=== PATIENT | female | born 1980 | race Caucasian/White ===

== ENCOUNTER 2018-02-24 16:11 | Emergency (ER) | payer OTHER, BC ==
[2018-02-24] MEDS ORDERED: Albuterol 0.083% 2.5 MG/3 ML Neb Soln NEB ONE (16:12)
[2018-02-24] MEDS ORDERED: LORazepam 2 MG/ML SDV IVPUSH ONE (16:51)
--- NOTE | 2018-02-24 16:51 | EDM.PDOC ---
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 This is been formulated into a mustache. She was placing it on her lower lip when a piece broke off and she started laughing. Subsequently she feels like persistent irritation in her hypopharynx with trouble breathing. He has tried several pop to try and wash it down but cannot. She feels like it is still sitting in her bottom of her throat causing a choking sensation. She has been nearly vomiting or dry heaving repetitively upon trying to swallow. 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) (None.) - Related Data Allergies Allergy/AdvReac Type Severity Reaction Status Date / Time No Known Allergies Allergy Verified 02/24/18 16:34 Past Medical History Psychiatric History: Reports: ADHD, Anxiety, Depression - Past Surgical History HEENT Surgical History: Reports: Adenoidectomy, Oral Surgery, Tonsillectomy Female Surgical History: Reports: Tubal Ligation Other Female Surgeries/Procedures: Uterine ablation Other Neurological Surgeries/Procedures: "head surgery" Social & Family History - Family History Family Medical History: Noncontributory - Tobacco Use Smoking Status *Q: Never Smoker - Recreational Drug Use Recreational Drug Use: No - Living Situation & Occupation Living situation: Reports: Occupation: Employed ED ROS GENERAL - Review of Systems Review Of Systems: See Below Constitutional: Reports: No Symptoms HEENT: Reports: No Symptoms Respiratory: Reports: Shortness of Breath, Wheezing Cardiovascular: Reports: No Symptoms Endocrine: Reports: No Symptoms GI/Abdominal: Reports: No Symptoms : Reports: No Symptoms Musculoskeletal: Reports: No Symptoms Skin: Reports: No Symptoms Neurological: Reports: No Symptoms Psychiatric: Reports: No Symptoms Hematologic/Lymphatic: Reports: No Symptoms Immunologic: Reports: No Symptoms ED EXAM, GENERAL - Physical Exam Exam: See Below Exam Limited By: No Limitations General Appearance: Alert, WD/WN Course - Vital Signs Last Recorded V/S: Last Vital Signs Temp 36.2 C 02/24/18 16:29 Pulse 93 02/24/18 16:29 Resp 18 02/24/18 16:29 BP 155/96 H 02/24/18 16:29 Pulse Ox 99 02/24/18 17:36 - Orders/Labs/Meds Orders: Active Orders 24 hr Category Date Time Status RT Aerosol Therapy [RC] ASDIRECTED Care 02/24/18 17:33 Active Meds: Medications Discontinued Medications Generic Name Dose Route Start Last Admin Trade Name Freq PRN Reason Stop Dose Admin Albuterol 2.5 mg 02/24/18 16:12 02/24/18 16:12 Proventil Neb Soln NEB 02/24/18 16:13 2.5 mg ONETIME ONE Administration Benzocaine 10 gm 02/24/18 16:54 Hurricaine 20% Gel MUCMEM 02/24/18 16:55 ONETIME ONE Benzocaine 10 ml 02/24/18 17:04 02/24/18 17:14 Hurricaine 20% Manor MUCMEM 02/24/18 17:05 10 ml ONETIME ONE Administration Lidocaine 4 ml 02/24/18 16:52 Lta 360 Kit Top Soln TOP 02/24/18 16:53 ONETIME ONE Lidocaine HCl 15 ml 02/24/18 17:10 02/24/18 17:14 Xylocaine 2% Viscous PO 02/24/18 17:11 15 ml ONETIME ONE Administration Lidocaine HCl 50 ml 02/24/18 17:17 02/24/18 17:19 Xylocaine 1% INJECT 02/24/18 17:18 50 ml ONETIME ONE Administration Lorazepam 1 mg 02/24/18 16:51 02/24/18 16:55 Ativan IVPUSH 02/24/18 16:52 1 mg ONETIME ONE Administration Midazolam HCl 2 mg 02/24/18 16:56 02/24/18 18:05 Versed 1 Mg/Ml IVPUSH 02/24/18 16:57 1 mg ONETIME ONE Administration Propofol Confirm 02/24/18 17:42 Diprivan 20 Ml Administered 02/24/18 17:43 Dose 200 mg .ROUTE .STK-MED ONE - Radiology Interpretation Free Text/Narrative:: 37-year-old female presents to the ED due to inhalation of a foreign body which is like fake fur. This is found in a mustache type of material with an adhesive. She had it on and was laughing and inhaled the corner of the mustache and her upper airway which caused her to have severe paroxysmal coughing for a period of time and then dry heaving and retching. Still feels like the form body is in her hypopharynx. Attempts to relieve the feeling by in taking soda pop and bread dipped in milk failed to relieve the symptoms although she did feel improved with less feeling of dry heaving or retching. Still feels a foreign body sensation in the center of her anterior throat in the hypopharynx. Plan will be to proceed with the aid of UNIVERSITY ADMINISTRATOR to provide Hurricaine spray and local anesthetic to her airway and posterior oropharynx to see if we can have a look at the epiglottis and hypopharynx for the foreign body without need for intubation. - Re-Assessments/Exams Free Text/Narrative Re-Assessment/Exam: 02/24/18 18:04 after Hurricaine spray and inhalational lidocaine procedure done while she was awake. She tolerated the procedure very well with the occasional gag reflex. There was no blood in the oropharynx. With a laryngoscope #4 Mac blade I was able to explore anterior to the as well as posterior to the epiglottis in the hypopharynx. I suctioned this area as well and no foreign material was identified. I therefore think that she probably swallowed this piece of fake fur. There is still a chance that she aspirated it and will develop signs and symptoms of upper respiratory tract infection in the next 72 hours if this did occur. Her cough reflex was very aggressive and I strongly doubt that she aspirated it. There is no sign of stridor and upper airway or upper bronchi on repeat exam. Dilaudid for the lidocaine to wear off before seeing how she is feeling and if she has any further foreign body sensation. 02/24/18 19:02 patient is now able swallow. Her voice is clear. She is alert and oriented. She does not have the foreign body sensation in her throat at this time. Patient will be discharged to home. Follow-up if she develops any signs of upper respiratory tract infection or bronchitis with cough or sputum production fever or chills in the next 96 hours. Departure - Departure Time of Disposition: 19:02 Disposition: Home, Self-Care 01 Condition: Fair (Oropharyngeal foreign body) Clinical Impression: Choking due to foreign body - Discharge Information *PRESCRIPTION DRUG MONITORING PROGRAM REVIEWED*: Not Applicable *COPY OF PRESCRIPTION DRUG MONITORING REPORT IN PATIENT GAETANO: Not Applicable Referrals: Edouard Chin MD [Primary Care Provider] - Forms: ED Department Discharge Additional Instructions: Evaluation in the emergency room today in regards to aspiration of a piece of fake fur that was in the shape of a mustache. His cause you to have the upper airway obstruction symptoms as well as gagging reflex producing vomiting and dry heaves. It appears that the foreign body went down deep into the hypopharynx and precipitated above symptoms. Symptoms seemed to gradually improve. We managed to explore your hypopharynx and airway under hurricane spray and lidocaine inhalational treatment to no meter throat. Explore aeration I could not identify any foreign body anterior to the esophagus or posterior to the esophagus or near the vocal cords. No sign of foreign body in the posterior oropharynx identified either. All of these areas also were suctioned aggressively with Yonker. Therefore it appears of the foreign body either was aspirated anterior lung but I could not identify this on clinical examination or you swallowed it. At this point time he may eat and drink normally. You are to monitor for development of upper spine Kevin tract symptoms such as increasing cough or purulent mucus production over the next 72-96 hours. If this occurs of course you need to return to the ED for further evaluation and potential bronchoscopy. - My Orders Last 24 Hours: My Active Orders 02/24/18 17:33 RT Aerosol Therapy [RC] ASDIRECTED - Assessment/Plan Last 24 Hours: My Active Orders 02/24/18 17:33 RT Aerosol Therapy [RC] ASDIRECTED
[2018-02-24] MEDS ORDERED: Lidocaine 4% Top Soln LTA 4 ML SYRINGE TOP ONE (16:52)
[2018-02-24] MEDS ORDERED: Benzocaine 20% Dental Gel 30 GM Jar MUCMEM ONE (16:54)
[2018-02-24] MEDS ORDERED: Midazolam 1 MG/ML 2 ML SDV IVPUSH ONE (16:56)
[2018-02-24] MEDS ORDERED: Benzocaine 20% Oral Spray 59.2 ML Canister MUCMEM ONE (17:04)
[2018-02-24] MEDS ORDERED: Lidocaine 2% Viscous Solution 15 ML Cup PO ONE (17:10)
[2018-02-24] MEDS ORDERED: Lidocaine 1% 50 ML MDV INJECT ONE (17:17)
[2018-02-24] MEDS ORDERED: Propofol 200 MG/20 ML SDV ONE (17:42)
--- NOTE | 2018-02-24 18:12 | PCM.SN ---
- Free Text/Narrative Note: Stand by assist for Dr. Keith for a questionable foreign body removal from the upper hypopharynx. Wendy had been drinking soda along with trying some milk and bread to dislodge the piece of cotton. Discussed the risk of aspiration with a full stomach with Wendy and her . Dr. Keith is in agreement to proceed with a lidocaine nebulizer treatment and viscus lidocaine gargle. The lidocaine available was 1%. 5 ml was nebulized over 20 minutes. Wendy tolerated the airway exam well. No further anesthesia was needed. Romeo Sherwood CRNA
== END 2018-02-24 19:22 | disposition home or self-care (01) ==
LOC: JD.ED 16:11
DX: T17.298A Other foreign object in pharynx causing other injury, initial encounter (principal); F41.9 Anxiety disorder, unspecified; F32.9 Major depressive disorder, single episode, unspecified
CPT/HCPCS: 94640; 96374; 96375; 99284; A9270; J2060; J2250; J2704

== ENCOUNTER 2018-07-24 16:44 | Emergency (ER) | payer BC, OTHER ==
[2018-07-24] MEDS ORDERED: Ondansetron 4 MG Tab.DIS PO ONE (17:30)
[2018-07-24] MEDS ORDERED: Ondansetron 4 MG Tab.DIS ONE (17:31)
--- NOTE | 2018-07-24 17:49 | EDM.PDOC ---
ED HPI GENERAL MEDICAL PROBLEM - General Chief Complaint: Respiratory Problem Stated Complaint: FEVER AND BODY ACHES AND NAUSEA Time Seen by Provider: 07/24/18 17:16 Source of Information: Reports: Patient, RN Notes Reviewed - History of Present Illness INITIAL COMMENTS - FREE TEXT/NARRATIVE: 37 year old female with onset of nausea, fever, chills, myalgias this past morning. She is nauseated, has not vomited. No cough, monae. or sore throat. 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 Generalized Pain Score (Numeric/FACES): 6 - Related Data Allergies Allergy/AdvReac Type Severity Reaction Status Date / Time No Known Allergies Allergy Verified 02/24/18 16:34 Home Meds: Home Meds Cholecalciferol (Vitamin D3) [Vitamin D3] 1,000 unit PO DAILY 07/24/18 [History] Escitalopram [Lexapro] 20 mg PO DAILY 07/24/18 [History] Methylphenidate HCl [Ritalin] 40 mg PO DAILY 07/24/18 [History] Ondansetron [Zofran ODT] 4 mg PO Q6H PRN #10 tab.dis 07/24/18 [Rx] Past Medical History Psychiatric History: Reports: ADHD, Anxiety, Depression - Past Surgical History HEENT Surgical History: Reports: Adenoidectomy, Oral Surgery, Tonsillectomy Female Surgical History: Reports: Tubal Ligation Other Female Surgeries/Procedures: Uterine ablation Other Neurological Surgeries/Procedures: "head surgery" Social & Family History - Family History Family Medical History: Noncontributory - Tobacco Use Smoking Status *Q: Never Smoker - Caffeine Use Caffeine Use: Reports: Coffee, Soda - Recreational Drug Use Recreational Drug Use: No - Living Situation & Occupation Living situation: Reports: Occupation: Employed ED ROS GENERAL - Review of Systems Review Of Systems: See Below Constitutional: Reports: Chills HEENT: Denies: Rhinitis, Sinus Problem, Throat Pain Respiratory: Denies: Shortness of Breath, Cough Cardiovascular: Denies: Chest Pain Endocrine: Reports: Fatigue GI/Abdominal: Reports: Nausea. Denies: Diarrhea, Vomiting Musculoskeletal: Reports: Other (generalized achiness) Skin: Denies: Rash Neurological: Reports: Headache ED EXAM, GENERAL - Physical Exam Exam: See Below General Appearance: Alert, Mild Distress Eye Exam: Bilateral Eye: PERRL Nose: Normal Inspection Throat/Mouth: Normal Inspection Head: Atraumatic Neck: Supple Respiratory/Chest: No Respiratory Distress, Lungs Clear, Normal Breath Sounds Cardiovascular: Tachycardia Extremities: Normal Inspection, Normal Range of Motion Neurological: Alert, Oriented, No Motor/Sensory Deficits Skin Exam: Warm, Dry, Normal Color Course - Vital Signs Last Recorded V/S: Last Vital Signs Temp 99.1 F 07/24/18 18:03 Pulse 106 H 07/24/18 18:03 Resp 15 07/24/18 18:03 BP 126/68 07/24/18 18:03 Pulse Ox 95 07/24/18 18:03 - Orders/Labs/Meds Meds: Medications Discontinued Medications Generic Name Dose Route Start Last Admin Trade Name Freq PRN Reason Stop Dose Admin Ondansetron HCl 4 mg 07/24/18 17:30 07/24/18 17:33 Zofran Odt PO 07/24/18 17:31 4 mg ONETIME ONE Administration Ondansetron HCl Confirm 07/24/18 17:31 07/24/18 17:59 Zofran Odt Administered 07/24/18 17:32 Not Given Dose 4 mg .ROUTE .STK-MED ONE - Re-Assessments/Exams Free Text/Narrative Re-Assessment/Exam: 07/25/18 14:55 Infl. screen did come back neg. Discharge instr. as documented. Departure - Departure Time of Disposition: 17:47 Disposition: Home, Self-Care 01 Clinical Impression: Viral syndrome - Discharge Information Prescriptions: Ondansetron [Zofran ODT] 4 mg PO Q6H PRN #10 tab.dis PRN Reason: Nausea/Vomiting Referrals: Edouard Chin MD [Primary Care Provider] - Forms: ED Department Discharge, ED Return to Work/School Form Additional Instructions: Rest, clear liquids tonight and until tomorrow afternoon or until symptoms of severe nausea, diarrhea resolving, Zofran every 6-8 hours if needed for further nausea or vomiting, probiotic also recommended to take twice daily for the next week and thereafter as needed, off work as suggested until symptoms resolving or at least getting back toward normal, you need to be without fever for at least 24 hours he for returning back to work. Follow-up clinic as needed, return to ED as needed if symptoms worsening in any way.
== END 2018-07-24 18:08 | disposition home or self-care (01) ==
LOC: JD.ED 16:44
DX: B34.9 Viral infection, unspecified (principal); F41.9 Anxiety disorder, unspecified; F32.9 Major depressive disorder, single episode, unspecified; Z98.890 Other specified postprocedural states; Z98.51 Tubal ligation status
CPT/HCPCS: 87804; 99283; A9270

== ENCOUNTER 2020-05-20 05:23 | Emergency (ER) | payer BC ==
--- NOTE | 2020-05-20 05:51 | EDM.PDOC ---
<Dorian Bazan - Last Filed: 05/20/20 06:41> ED HPI GENERAL MEDICAL PROBLEM - General Chief Complaint: Respiratory Problem Stated Complaint: COVID+, SOB Time Seen by Provider: 05/20/20 06:20 Source of Information: Reports: Patient History Limitations: Reports: No Limitations - History of Present Illness INITIAL COMMENTS - FREE TEXT/NARRATIVE: This is a 39-year-old female she had onset of Covid type symptoms on the was tested on the and found to be positive. She has had the typical Covid symptoms of diarrhea, congestion, fatigue, headache and over the last couple of days she has been having increasing shortness of breath with her cough. She says as long as she is still she is not short of breath but as soon as she tries to get up and do anything she gets more short of breath. She does not suggest there is any significant wheezing with this shortness of breath but she does have some tightness or heaviness in her chest. Due to the shortness of breath she comes to the ER for evaluation. She has been drinking fluids. 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: Psychiatric History: Reports: ADHD, Anxiety, Depression - Infectious Disease History Infectious Disease History: Reports: Novel Coronavirus - Past Surgical History HEENT Surgical History: Reports: Adenoidectomy, Oral Surgery, Tonsillectomy Female Surgical History: Reports: Tubal Ligation Other Female Surgeries/Procedures: Uterine ablation Other Neurological Surgeries/Procedures: "head surgery" Social & Family History - Family History Family Medical History: No Pertinent Family History - Tobacco Use Tobacco Use Status *Q: Never Tobacco User - Caffeine Use Caffeine Use: Reports: Coffee, Soda - Living Situation & Occupation Living situation: Reports: Occupation: Employed ED ROS GENERAL - Review of Systems Review Of Systems: See Below Constitutional: Reports: Fatigue. Denies: Fever, Chills HEENT: Reports: Sinus Problem Respiratory: Reports: Shortness of Breath, Cough Cardiovascular: Reports: No Symptoms GI/Abdominal: Reports: Diarrhea. Denies: Nausea, Vomiting : Reports: No Symptoms Musculoskeletal: Reports: No Symptoms Skin: Reports: No Symptoms Neurological: Reports: No Symptoms Psychiatric: Reports: No Symptoms Hematologic/Lymphatic: Reports: No Symptoms ED EXAM, GENERAL - Physical Exam Exam: See Below Exam Limited By: No Limitations General Appearance: Alert, WD/WN, No Apparent Distress Eye Exam: Bilateral Eye: Normal Inspection Ears: Normal External Exam Throat/Mouth: Normal Voice, No Airway Compromise Head: Normocephalic Neck: Supple Respiratory/Chest: No Respiratory Distress, Lungs Clear, Normal Breath Sounds, Other (Occasional crackle in the base noted) Cardiovascular: Regular Rate, Rhythm, No Murmur GI/Abdominal: Other (Denies any significant tenderness) Back Exam: Normal Inspection, Full Range of Motion Extremities: Normal Inspection, Normal Range of Motion Neurological: Alert, Oriented Psychiatric: Normal Affect, Normal Mood Skin Exam: Warm, Dry Course - Re-Assessments/Exams Free Text/Narrative Re-Assessment/Exam: 05/20/20 06:41 When the patient is seated her pulse ox runs about [id number]. When she starts talking it actually goes a little higher. But if she gets up it seems to desat especially at home down to 88 to 90%. Departure - Departure Disposition: Home, Self-Care 01 Clinical Impression: COVID-19 - Discharge Information Prescriptions: dexAMETHasone [Dexamethasone] 6 mg PO DAILY #15 tab Referrals: PCP,Unknown [Ordering Only Provider] - Sylvia Post NP [Primary Care Provider] - 1 Week Forms: ED Department Discharge Additional Instructions: Take the dexamethasone 6mg or 1.5 pills daily for 10 days. Drink plenty of f luids. Use the inhaler 2 puffs every 6 hours as needed for shortness of breath. Use tylenol or motrin as needed for any fever or pain. Keep monitoring your oxygen saturations. If they are consistently below 90 please return. Sepsis Event Note (ED) - Evaluation Sepsis Screening Result: No Definite Risk <Dorian Jacques - Last Filed: 05/20/20 08:18> Course - Vital Signs Last Recorded V/S: Last Vital Signs Temp 99 F 05/20/20 07:03 Pulse 111 H 05/20/20 07:03 Resp 20 05/20/20 07:03 BP 120/87 05/20/20 07:03 Pulse Ox 95 05/20/20 05:27 - Orders/Labs/Meds Orders: Active Orders 24 hr Category Date Time Status RT Post Treatment Assessment [RC] Click to Edit Care 05/20/20 08:12 Ordered RT Pre-Treatment Assessment [RC] Click to Edit Care 05/20/20 08:12 Ordered CXR [Chest 1V Frontal] [CR] Stat Exams 05/20/20 06:39 Taken Albuterol [Proventil HFA] Med 05/20/20 08:11 Once See Dose Instructions INH ONETIME ONE dexAMETHasone Med 05/20/20 08:11 Once 4 mg PO ONETIME ONE Labs: Laboratory Tests 05/20/20 05/20/20 05/20/20 Range/Units 06:55 06:55 06:55 WBC 2.33 L* (3.98-10.04) K/mm3 RBC 5.05 (3.98-5.22) M/mm3 Hgb 15.0 (11.2-15.7) gm/dl Hct 43.3 (34.1-44.9) % MCV 85.7 (79.4-94.8) fl MCH 29.7 (25.6-32.2) pg MCHC 34.6 (32.2-35.5) g/dl RDW Std Deviation 38.9 (36.4-46.3) fL Plt Count 132 L (182-369) K/mm3 MPV 9.7 (9.4-12.3) fl Neut % (Auto) 60.6 (34.0-71.1) % Lymph % (Auto) 30.0 (19.3-51.7) % [place] % (Auto) 7.7 (4.7-12.5) % Eos % (Auto) 0.9 (0.7-5.8) Baso % (Auto) 0.4 (0.1-1.2) % Neut # (Auto) 1.41 L (1.56-6.13) K/mm3 Lymph # (Auto) 0.70 L (1.18-3.74) K/mm3 [place] # (Auto) 0.18 L (0.24-0.36) K/mm3 Eos # (Auto) 0.02 L (0.04-0.36) K/mm3 Baso # (Auto) 0.01 (0.01-0.08) K/mm3 Manual Slide Review Abnormal smear Sodium 140 (136-145) mEq/L Potassium 3.7 (3.5-5.1) mEq/L Chloride 104 (98-107) mEq/L Carbon Dioxide 24 (21-32) mEq/L Anion Gap 15.7 H (5-15) BUN 12 (7-18) mg/dL Creatinine 0.6 (0.55-1.02) mg/dL Est Cr Clr Drug Dosing TNP Estimated GFR (MDRD) > 60 (>60) mL/min BUN/Creatinine Ratio 20.0 H (14-18) Glucose 114 H (74-106) mg/dL Calcium 9.4 (8.5-10.1) mg/dL Ferritin 106 (8-252) ng/ml Total Bilirubin 0.5 (0.2-1.0) mg/dL AST 37 (15-37) U/L ALT 55 (14-59) U/L Alkaline Phosphatase 63 (46-116) U/L Lactate Dehydrogenase 212 (81-234) U/L Troponin I < 0.017 (0.00-0.056) ng/mL C-Reactive Protein 2.4 H* (<1.0) mg/dL Total Protein 7.0 (6.4-8.2) g/dl Albumin 3.6 (3.4-5.0) g/dl Globulin 3.4 gm/dL Albumin/Globulin Ratio 1.1 (1-2) - Re-Assessments/Exams Free Text/Narrative Re-Assessment/Exam: 05/20/20 08:[address] Bazan. The patient's oxygen saturations only got as low at 93%. Her CXR looks good. Her WBC was low at 2.33. I do not have any prior labs to compare to. Her anion gap was slightly elevated at 15.7. Her troponin is negative. Her CRP is elevated at 2.4. 05/20/20 08:15 I will give her an inhaler and some dexamethasone. Departure - Departure Time of Disposition: 08:20 Condition: Good - Discharge Information *PRESCRIPTION DRUG MONITORING PROGRAM REVIEWED*: Not Applicable *COPY OF PRESCRIPTION DRUG MONITORING REPORT IN PATIENT GAETANO: Not Applicable Sepsis Event Note (ED) - Focused Exam Vital Signs: Vital Signs Temp Pulse Resp BP Pulse Ox 05/20/20 07:03 99 F 111 H 20 120/87 05/20/20 05:27 97.2 F 128 H 22 H 138/90 95 - My Orders Last 24 Hours: My Active Orders 05/20/20 08:11 Albuterol [Proventil HFA] See Dose Instructions INH ONETIME ONE dexAMETHasone 4 mg PO ONETIME ONE 05/20/20 08:12 RT Post Treatment Assessment [RC] Click to Edit RT Pre-Treatment Assessment [RC] Click to Edit - Assessment/Plan Last 24 Hours: My Active Orders 05/20/20 08:11 Albuterol [Proventil HFA] See Dose Instructions INH ONETIME ONE dexAMETHasone 4 mg PO ONETIME ONE 05/20/20 08:12 RT Post Treatment Assessment [RC] Click to Edit RT Pre-Treatment Assessment [RC] Click to Edit
[2020-05-20] MEDS ORDERED: Albuterol 6.7 GM Inhaler INH ONE (08:11)
[2020-05-20] MEDS ORDERED: Dexamethasone 4 MG Tab PO ONE ×2 (08:11→08:14)
--- NOTE | 2020-05-21 09:52 | CR ---
PROCEDURE INFORMATION: Exam: XR Chest, 1 View Exam date and time: 05/20/2020 6:57 AM Age: 39 years old Clinical indication: Cough and shortness of breath; Patient HX: Covid+ TECHNIQUE: Imaging protocol: XR of the chest Views: 1 view. COMPARISON: No relevant prior studies available. FINDINGS: Lungs: There is minor linear atelectasis or scarring at the left base. The lungs are otherwise clear. Pleural space: Unremarkable. No pleural effusion. No pneumothorax. Heart/Mediastinum: Unremarkable. No cardiomegaly. Bones/joints: Unremarkable. IMPRESSION: No evidence for acute pulmonary disease. Thank you for allowing us to participate in the care of your patient. Dictated and Authenticated by: Isai Maddox MD 05/20/2020 8:38 AM Central Time ([place] & [place]) HUE[place]
== END 2020-05-20 08:38 | disposition home or self-care (01) ==
LOC: JD.ED 05:23
DX: U07.1 COVID-19 (principal); F90.9 Attention-deficit hyperactivity disorder, unspecified type; F41.9 Anxiety disorder, unspecified; F32.9 Major depressive disorder, single episode, unspecified; Z79.899 Other long term (current) drug therapy
CPT/HCPCS: 36415; 71045; 80053; 82728; 83615; 84484; 85025; 86140; 94640; 99285; A9270; J8540

== ENCOUNTER 2020-11-22 02:48 | Emergency (ER) | payer BC ==
--- NOTE | 2020-11-22 03:07 | EDM.PDOC ---
ED HPI GENERAL MEDICAL PROBLEM - General Chief Complaint: Lower Extremity Injury/Pain Stated Complaint: ANKLE INJURY Time Seen by Provider: 11/22/20 02:54 Source of Information: Reports: Patient, Family () History Limitations: Reports: No Limitations - History of Present Illness INITIAL COMMENTS - FREE TEXT/NARRATIVE: Mrs. Bey is a most pleasant 39-year-old woman who now presents to the ED after slipping, falling, and twisting her left ankle around 02:30 this morning. She states that she also struck her forehead when she fell, however, she was not knocked unconscious, and she denies having a headache. She is otherwise uninjured. No prior left ankle injury. Here in the ED, the patient's initial BP is found to be mildly elevated at 146/99, with slight tachycardia of 101 bpm. She is afebrile, saturating 96% on room air. She does not appear to be in acute distress. Prior to this morning, the patient denies having a recent fever, chills, sore throat, ear pain, nasal or sinus congestion, cough, dyspnea, chest pain, palpitations, nausea, vomiting, constipation, diarrhea, abdominal pain, urinary symptoms, recent weight gain or weight loss, recent bloody bowel movements or black bowel movements, recent joint aches, headaches, or rashes. The patient's PCP is Dr. Edouard Núñez, in [place]. Her Systems Programmer Analyst is Dr. Nisha Knox, in [place]. Left Ankle Pain Score (Numeric/FACES): 8 - Related Data Allergies Allergy/AdvReac Type Severity Reaction Status Date / Time No Known Allergies Allergy Verified 11/22/20 02:50 Home Meds: Home Meds Cholecalciferol (Vitamin D3) [Vitamin D3] 1,000 unit PO DAILY 07/24/18 [History] Escitalopram [Lexapro] 20 mg PO DAILY 07/24/18 [History] Methylphenidate HCl [Ritalin] 40 mg PO DAILY 07/24/18 [History] dexAMETHasone [Dexamethasone] 6 mg PO DAILY #15 tab 05/20/20 [Rx] Past Medical History Psychiatric History: Reports: ADHD, Anxiety, Depression - Infectious Disease History Infectious Disease History: Reports: Novel Coronavirus (dx'd 05/12/2020) - Past Surgical History HEENT Surgical History: Reports: Adenoidectomy, Oral Surgery (dental extractions), Tonsillectomy Female Surgical History: Reports: Endometrial Ablation, Tubal Ligation Other Neurological Surgeries/Procedures: "head surgery" Social & Family History - Tobacco Use Tobacco Use Status *Q: Former Tobacco User Years of Tobacco use: 2 Packs/Tins Daily: 0.3 Packs/Tins Daily Comment: Quit 2002 Tobacco Use Comment: Started smoking around 1999 - Caffeine Use Caffeine Use: Reports: Coffee, Soda - Alcohol Use Alcohol Use History: Yes Alcohol Use Frequency: Socially (occasionally to excess) - Recreational Drug Use Recreational Drug Use: No - Living Situation & Occupation Living situation: Reports: , with Spouse, with Family (4 kids) 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 ED EXAM, GENERAL - Physical Exam Exam: See Below Exam Limited By: No Limitations General Appearance: Alert, WD/WN, No Apparent Distress Eye Exam: Bilateral Eye: EOMI, Normal Inspection Ears: Normal External Exam, Hearing Grossly Normal Nose: Normal Inspection Throat/Mouth: Normal Inspection, Normal Lips, Normal Voice, No Airway Compromise Head: Normocephalic, Other (Small abrasion to forehead, just left of midline. No associated swelling.) Neck: Normal Inspection, Full Range of Motion Respiratory/Chest: No Respiratory Distress Peripheral Pulses: 3+: Dorsalis Pedis (L), Dorsalis Pedis (R) Extremities: Other (Considerable swelling, with some ecchymosis over the lateral malleolus, although this area is not particularly tender. Minimal swelling over the medial malleolus, although this area is most tender. Minimal, if any, tenderness over the anterior and posterior syndesmosis. Neurovascular status of th) Neurological: Alert, Oriented, Normal Cognition, No Motor/Sensory Deficits Psychiatric: Normal Affect Skin Exam: Warm, Dry, Intact, Normal Color, No Rash ED TRAUMA EXTREMITY PROCEDURES - Splinting Left Lower Extremity Splint Site: Left ankle Pre-Procedure NV Status: Normal Post-Procedure NV Status: Normal Splint Material: Fiberglass Splint Design: Posterior Applied & Form Fitted By: Provider Provider Post-Splint Application NV Check: NV Status Normal, Good Position Complications: No Course - Vital Signs Last Recorded V/S: Last Vital Signs Temp 35.9 C L 11/22/20 02:50 Pulse 101 H 11/22/20 02:50 Resp 17 11/22/20 02:50 BP 146/99 H 11/22/20 02:50 Pulse Ox 96 11/22/20 02:50 - Orders/Labs/Meds Orders: Active Orders 24 hr Category Date Time Status Ankle Min 3V Lt [CR] Stat Exams 11/22/20 03:01 Ordered DME for Discharge [COMM] Stat Oth 11/22/20 03:21 Ordered - Re-Assessments/Exams Free Text/Narrative Re-Assessment/Exam: 11/22/20 03:02 As above, the patient slipped and fell, twisting her left ankle about 30 minutes ago. She has significant swelling over the lateral malleolus, although this area is not very tender, while she has minimal swelling over her medial malleolus, which is tender. I have ordered x-rays of the left ankle to evaluate. The patient declined an offer for pain medication. 11/22/20 03:20 4-view radiographs of the left ankle appear to demonstrate a minimally displaced fracture of the distal posterior tibia. No other fractures or dislocations are identified. Formal read per the Radiologist pending. 11/22/20 03:36 The patient's left lower extremity was placed into a posterior mold splint with the ankle at 90 degrees. She tolerated the procedure well. She will be fitted for crutches prior to discharge. I will discharge her with an [facility] prescription for Midvale. She is to ice and elevate her left ankle as much as possible over the next few days, to help minimize swelling. She is to call Dr. Gilliam's office in the morning, to make an appointment to be seen next week. Departure - Departure Time of Disposition: 03:37 Disposition: Home, Self-Care 01 Condition: Good Clinical Impression: Closed fracture of left distal tibia - Discharge Information *PRESCRIPTION DRUG MONITORING PROGRAM REVIEWED*: Not Applicable *COPY OF PRESCRIPTION DRUG MONITORING REPORT IN PATIENT GAETANO: Not Applicable Instructions: Ankle Fracture, [id number] Referrals: Abundio Gilliam MD [Physician] - Edouard Núñez CRNA [Ordering Only Provider] - Torito Knox MD [Ordering Only Provider] - Forms: ED Department Discharge Additional Instructions: You were seen in the emergency room after slipping and falling, injuring your left ankle. Work-up in the ER included x-rays of your left ankle, which demonstrated a minimally displaced fracture of your distal posterior tibia. Your left leg was placed into a splint. The splint cannot get wet, and you cannot bear weight on the splint, as it will break. You have been fitted for crutches. It is important that you use the crutches anytime you ambulate. Consider also renting or purchasing a knee roller. We recommend that you ice and elevate your left ankle as much as possible over the next 2 to 3 days, to help minimize swelling. We recommend that you take [id number] ibuprofen, 3 to 4 tablets (600-800 mg) up to every 8 hours, with food, as needed for discomfort. A prescription for the opioid pain reliever Midvale has been provided to you via [email or web address]. You may take 1 to 2 tablets of Midvale up to every 6 hours, as needed for pain not relieved by ibuprofen. If you take Midvale, do not drive or operate heavy machinery for 12 hours after taking. Midvale may cause constipation, so consider taking a stool softener. We recommend that you call the office of the Orthopedic Surgeon Dr. Abundio Gilliam in the morning, to make an appointment to be seen next week. If any other problems, please do not hesitate to return to the ER. Sepsis Event Note (ED) - Evaluation Sepsis Screening Result: No Definite Risk - Focused Exam Vital Signs: Vital Signs Temp Pulse Resp BP Pulse Ox 11/22/20 02:50 35.9 C L 101 H 17 146/99 H 96 - My Orders Last 24 Hours: My Active Orders 11/22/20 03:01 Ankle Min 3V Lt [CR] Stat 11/22/20 03:21 DME for Discharge [COMM] Stat - Assessment/Plan Last 24 Hours: My Active Orders 11/22/20 03:01 Ankle Min 3V Lt [CR] Stat 11/22/20 03:21 DME for Discharge [COMM] Stat
--- NOTE | 2020-11-22 08:11 | CR ---
Left ankle: 4 views of the left ankle. Comparison: No prior ankle study is available. Ankle mortise is symmetric. Medial and lateral malleoli are normal. Nondisplaced posterior malleolus fracture is noted. Soft tissue swelling is noted. No additional abnormality is appreciated. Impression: 1. Posterior malleolus fracture with soft tissue swelling. 2. Left ankle study is otherwise unremarkable. Diagnostic code #3
== END 2020-11-22 04:07 | disposition home or self-care (01) ==
LOC: JD.ED 02:48
DX: S82.892A Other fracture of left lower leg, initial encounter for closed fracture (principal); Z79.899 Other long term (current) drug therapy; Z87.891 Personal history of nicotine dependence; W01.0XXA Fall on same level from slipping, tripping and stumbling without subsequent striking against object, initial encounter
CPT/HCPCS: 29515; 73610-26-LT; 73610-LT; 99283; 99283-25

== ENCOUNTER 2020-11-22 14:49 | Emergency (ER) | payer BC ==
--- NOTE | 2020-11-22 15:26 | EDM.PDOC ---
ED HPI GENERAL MEDICAL PROBLEM - General Chief Complaint: Lower Extremity Injury/Pain Stated Complaint: RE CK ANKLE INJURY Time Seen by Provider: 11/22/20 14:59 Source of Information: Reports: Patient History Limitations: Reports: No Limitations - History of Present Illness INITIAL COMMENTS - FREE TEXT/NARRATIVE: 39-year-old female presents to the emergency department today. Patient was seen last evening in the emergency department and was found to have a posterior malleolus fracture that was nondisplaced. A splint was applied and patient was discharged home. She states she has been nonweightbearing using her crutches however the splint does not feel secure and it is moving on the plantar side of her foot. CMS is still positive however. Left Lower Ankle Pain Score (Numeric/FACES): 6 - Related Data Allergies Allergy/AdvReac Type Severity Reaction Status Date / Time No Known Allergies Allergy Verified 11/22/20 14:59 Home Meds: Home Meds Cholecalciferol (Vitamin D3) [Vitamin D3] 1,000 unit PO DAILY 07/24/18 [History] Hydrocodone With Acet. 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: Psychiatric History: Reports: ADHD, Anxiety, Depression - Infectious Disease History Infectious Disease History: Reports: Novel Coronavirus (dx'd 05/12/2020) - Past Surgical History HEENT Surgical History: Reports: Adenoidectomy, Oral Surgery (dental extractions), Tonsillectomy Female Surgical History: Reports: Endometrial Ablation, Tubal Ligation Other Neurological Surgeries/Procedures: "head surgery" Social & Family History - Family History Family Medical History: No Pertinent Family History - Caffeine Use Caffeine Use: Reports: Coffee, Soda - Living Situation & Occupation Living situation: Reports: 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 ED EXAM, GENERAL - Physical Exam Exam: See Below Exam Limited By: No Limitations General Appearance: Alert, WD/WN, No Apparent Distress Ears: Normal External Exam, Hearing Grossly Normal Nose: Normal Inspection Throat/Mouth: Normal Inspection, Normal Lips, Normal Voice, No Airway Compromise Head: Atraumatic Neck: Normal Inspection, Supple Respiratory/Chest: No Respiratory Distress, No Accessory Muscle Use Cardiovascular: Normal Peripheral Pulses, Regular Rate, Rhythm Peripheral Pulses: 2+: Dorsalis Pedis (L), Dorsalis Pedis (R) GI/Abdominal: No Distention (Female) Exam: Deferred Rectal (Female) Exam: Deferred Back Exam: Normal Inspection Extremities: Normal Inspection, Normal Capillary Refill, Joint Swelling (Left lower extremity swollen), Limited Range of Motion (Left lower extremity due to posterior malleolar fracture). No: Non-Tender (Tenderness noted to left lower extremity) Neurological: Alert, Oriented, Normal Cognition Psychiatric: Normal Affect, Normal Mood Skin Exam: Warm, Dry, Intact, Normal Color, No Rash Lymphatic: No Adenopathy Course - Vital Signs Text/Narrative:: Patient presents with posterior malleolar fracture nondisplaced that was splinted last evening. Splint is mobile on the plantar side of her foot and not secure. Patient states she did attempt to try to secure the Tk wrap however this has not helped. Patient was assessed and CMS is positive. Pedal pulses are present. I have resplinted the left lower extremity and patient states this does feel more secure. Patient will be discharged to home. She will continue to be nonweightbearing until she follows up with orthopedics. Last Recorded V/S: Last Vital Signs Temp 96.8 F L 11/22/20 14:55 Pulse 112 H 11/22/20 14:55 Resp 16 11/22/20 14:55 BP 152/91 H 11/22/20 14:55 Pulse Ox 96 11/22/20 14:55 Departure - Departure Time of Disposition: 15:26 Disposition: Home, Self-Care 01 Condition: Good Clinical Impression: Fracture, posterior malleolus Qualifiers: Encounter type: subsequent encounter Fracture type: closed Laterality: left Fracture healing: with routine healing Qualified Code(s): S82.392D - Other fracture of lower end of left tibia, subsequent encounter for closed fracture with routine healing - Discharge Information Referrals: Edouard Chin MD [Primary Care Provider] - Additional Instructions: You were seen in the ED. Splint was replaced. Remain on nonweightbearing status until follow up with ortho. Sepsis Event Note (ED) - Evaluation Sepsis Screening Result: No Definite Risk - Focused Exam Vital Signs: Vital Signs Temp Pulse Resp BP Pulse Ox 11/22/20 14:55 96.8 F L 112 H 16 152/91 H 96
== END 2020-11-22 15:30 | disposition home or self-care (01) ==
LOC: JD.ED 14:49
DX: S82.392D Other fracture of lower end of left tibia, subsequent encounter for closed fracture with routine healing (principal); X58.XXXD Exposure to other specified factors, subsequent encounter
CPT/HCPCS: 29515; 99282